=== PATIENT | female | born 1980 | race Hispanic/Latino ===

== ENCOUNTER 2017-01-25 22:10 | Emergency (ER) | payer OTHER ==
--- NOTE | 2017-01-25 22:37 | RAD ---
LEFT HAND 3 VIEWS: Date: 01/25/17 HISTORY: Fall. COMPARISON: None. FINDINGS: The hand is intact without fracture or malalignment. There is a distal radius fracture which is nondi splaced and will be further evaluated on the wrist radiographs. IMPRESSION: 1. Intact hand. 2. Nondisplaced distal radius fracture. POS: [facility]
[2017-01-25] MEDS ORDERED: HYDROcodone/Acetaminophen 10/325 mg Tablet ONE (23:02)
== END 2017-01-25 23:26 | disposition home or self-care (01) ==
LOC: ERS 22:10
DX: S52.502A Unspecified fracture of the lower end of left radius, initial encounter for closed fracture (principal); E03.9 Hypothyroidism, unspecified; E11.9 Type 2 diabetes mellitus without complications; D64.9 Anemia, unspecified; W10.9XXA Fall (on) (from) unspecified stairs and steps, initial encounter
CPT/HCPCS: 29125; 81025